=== PATIENT | male | born 1960 | race Caucasian/White ===

== ENCOUNTER 2021-10-26 00:41 | Inpatient (IN) | payer OTHER ==
[2021-10-26 01:55] LABS: VENOUS BASE EXCESS -3.4 mmol/L (-2-2); VENOUS O2 SATURATION 72.9 % (70-80); VENOUS PH 7.342 (7.310-7.410)
[2021-10-26 01:56] LABS: BASO % 0.7 % (0-2.0); EOS % 1.1 % (0-4.5); HEMATOCRIT 47.4 % (35.4-49); LYMPH % 28.8 % (8-40); MCH 32.1 pg (25.7-33.7); MCHC 33.8 g/dl (32.0-35.9); MEAN CELL VOLUME 94.9 fl (80-96); MEAN PLT VOLUME 8.1 fl (7.5-11.1); MONO % 7.6 % (3.8-10.2); NEUT % 61.8 % (42.8-82.8); PLATELET COUNT 275 10^3/uL (134-434); RDW 13.3 % (11.9-15.9); WHITE BLOOD COUNT 5.8 K/mm3 (4.0-10.0)
[2021-10-26 02:12] LABS: INR 0.95 (0.83-1.09); PROTHROMBIN TIME (PATIENT) 10.9 SEC (9.7-13.0)
[2021-10-26 02:15] LABS: ACTIVATED PTT 33.8 SECONDS (25.2-36.5)
[2021-10-26 02:17] LABS: ALBUMIN 3.6 g/dl (3.4-5.0); BLOOD UREA NITROGEN 18.9 mg/dL (7-18); CALCIUM 9.2 mg/dL (8.5-10.1)
[2021-10-26 02:20] LABS: CREATININE 1.1 mg/dL (0.55-1.3)
[2021-10-26 02:22] LABS: BILIRUBIN,TOTAL 0.8 mg/dL (0.2-1); TOT PROT 7.3 g/dl (6.4-8.2)
[2021-10-26 05:02] LABS: EPI CELLS 5 /uL (0-25.1); HYALINE CASTS 4 /uL (0-3.1); PH,URINE 5.5 (5.0-8.0); URINE APPEARANCE CLEAR; URINE BILIRUBIN NEGATIVE (NEGATIVE); URINE COLOR YELLOW; URINE GLUCOSE (UA) NEGATIVE (NEGATIVE); URINE KETONE TRACE (NEGATIVE); URINE LEUK ESTERASE 2+ (NEGATIVE); URINE NITRITE POSITIVE (NEGATIVE); URINE PROTEIN NEGATIVE (NEGATIVE); URINE WBC 287 /uL (0-25.8)
[2021-10-26] MEDS ORDERED: CEFTRIAXONE 1,000 MG in DEXTROSE 5%-WATER - 50 ML IVPB ONE (05:45)
[2021-10-26] MEDS ORDERED: CEFTRIAXONE 1 GM/50 ML BAG ONE ×2 (05:49→09:14)
[2021-10-26] MEDS ORDERED: SODIUM CHLORIDE 1,000 ML IV SCH (08:00)
[2021-10-26 09:12] LABS: URINE RBC 24 /uL (0-23.9)
[2021-10-26] MEDS ORDERED: ENOXAPARIN NA (PORCINE) 40 MG/0.4 ML DISP.SYRIN SQ ONE (09:14)
[2021-10-26] MEDS: ENOXAPARIN NA (PORCINE) 40 MG/0.4 ML DISP.SYRIN SQ SCH (09:22)
[2021-10-26] MEDS: CEFTRIAXONE 1 GM in DEXTROSE 5%-WATER - 50 ML IVPB SCH (09:22)
[2021-10-27 02:53] VITALS: BMI 16.2
[2021-10-27 07:24] LABS: EOS % 1.1 % (0-4.5); HEMATOCRIT 38.8 % (35.4-49); HEMOGLOBIN 13.1 GM/dL (11.7-16.9); LYMPH % 28.3 % (8-40); MCH 32.4 pg (25.7-33.7); MCHC 33.9 g/dl (32.0-35.9); MEAN CELL VOLUME 95.7 fl (80-96); MEAN PLT VOLUME 8.5 fl (7.5-11.1); MONO % 9.6 % (3.8-10.2); PLATELET COUNT 223 10^3/uL (134-434); RBC 4.06 M/mm3 (4.00-5.60); RDW 13.4 % (11.9-15.9); WHITE BLOOD COUNT 4.9 K/mm3 (4.0-10.0)
[2021-10-27 07:36] LABS: INR 0.97 (0.83-1.09); PROTHROMBIN TIME (PATIENT) 11.1 SEC (9.7-13.0)
[2021-10-27 07:38] LABS: ACTIVATED PTT 29.4 SECONDS (25.2-36.5)
[2021-10-27 07:54] LABS: MAGNESIUM 2.1 mg/dL (1.8-2.4)
[2021-10-27 07:57] LABS: CHOLESTEROL 145 mg/dL (50-200); PHOSPHOROUS 3.8 mg/dL (2.5-4.9)
[2021-10-27 07:58] LABS: TRIGLYCERIDES 100 mg/dL (0-150)
[2021-10-27 08:01] LABS: HDL CHOLESTEROL 49 mg/dL (40-60)
[2021-10-27 08:04] LABS: LDL CHOLESTEROL (ONLY SJRH) 79 mg/dL (5-100)
[2021-10-27] MEDS ORDERED: DEXTROSE 5%-WATER - 50 ML IVPB ONE (09:47)
[2021-10-27] MEDS ORDERED: cefTRIAXone SODIUM 1 GM VIAL ONE (09:47)
[2021-10-27 10:43] LABS: CHLORIDE 108 mmol/L (98-107); SODIUM 140 mmol/L (136-145)
[2021-10-27 10:45] LABS: CALCIUM 8.2 mg/dL (8.5-10.1)
[2021-10-27 10:46] LABS: ANION GAP 5 MMOL/L (8-16); CO2 26 mmol/L (21-32); GLUCOSE,RANDOM 90 mg/dL (74-106)
[2021-10-27 10:47] LABS: BLOOD UREA NITROGEN 14.9 mg/dL (7-18)
[2021-10-27 10:49] LABS: SGOT/AST 12 U/L (15-37); SGPT/ALT 14 U/L (13-61)
[2021-10-27 10:50] LABS: BILIRUBIN,TOTAL 0.5 mg/dL (0.2-1)
[2021-10-27 10:51] LABS: TOT PROT 6.2 g/dl (6.4-8.2)
[2021-10-27 10:52] LABS: ALK PHOS 81 U/L (45-117)
[2021-10-27] MEDS: ENOXAPARIN NA (PORCINE) 40 MG/0.4 ML DISP.SYRIN SQ SCH (10:59)
[2021-10-27] MEDS: CEFTRIAXONE 1 GM in DEXTROSE 5%-WATER - 50 ML IVPB SCH (10:59)
[2021-10-27 11:07] LABS: ERYTHROCYTE SEDIMENTATION RATE 8 mm/hr (0-20)
[2021-10-27 12:43] LABS: HEMATOCRIT 39.3 % (35.4-49); HEMOGLOBIN 13.5 GM/dL (11.7-16.9); MCH 32.9 pg (25.7-33.7); MCHC 34.4 g/dl (32.0-35.9); MEAN CELL VOLUME 95.5 fl (80-96); MEAN PLT VOLUME 8.3 fl (7.5-11.1); PLATELET COUNT 224 10^3/uL (134-434); RBC 4.12 M/mm3 (4.00-5.60); RDW 13.6 % (11.9-15.9); WHITE BLOOD COUNT 4.9 K/mm3 (4.0-10.0)
[2021-10-27 13:10] LABS: CALCIUM 8.7 mg/dL (8.5-10.1)
[2021-10-27 13:11] LABS: ALBUMIN 3.3 g/dl (3.4-5.0); BLOOD UREA NITROGEN 13.6 mg/dL (7-18)
[2021-10-27 13:14] LABS: CREATININE 0.8 mg/dL (0.55-1.3); PHOSPHOROUS 3.9 mg/dL (2.5-4.9)
[2021-10-27 13:16] LABS: BILIRUBIN,TOTAL 0.6 mg/dL (0.2-1); TOT PROT 6.8 g/dl (6.4-8.2)
[2021-10-27] MEDS ORDERED: ADENOSINE 6 MG/2 ML VIAL IVPUSH ONE (17:55)
[2021-10-27] MEDS ORDERED: dilTIAZem HCL 30 MG TABLET PO SCH (18:00)
[2021-10-27] MEDS ORDERED: NICOTINE 21 MG/24 HOURS TOPICAL PATCH TD SCH (18:15)
[2021-10-27] MEDS ORDERED: SODIUM CHLORIDE 1,000 ML IV SCH (18:15)
[2021-10-27] MEDS: NICOTINE 14 MG/24 HOURS TOPICAL PATCH TD SCH (18:24)
[2021-10-28 07:29] LABS: HEMATOCRIT 40.4 % (35.4-49); HEMOGLOBIN 13.2 GM/dL (11.7-16.9); MCH 31.7 pg (25.7-33.7); MCHC 32.7 g/dl (32.0-35.9); MEAN CELL VOLUME 97.1 fl (80-96); MEAN PLT VOLUME 8.6 fl (7.5-11.1); PLATELET COUNT 220 10^3/uL (134-434); RBC 4.16 M/mm3 (4.00-5.60); RDW 13.6 % (11.9-15.9); WHITE BLOOD COUNT 5.2 K/mm3 (4.0-10.0)
[2021-10-28 07:42] LABS: CALCIUM 8.4 mg/dL (8.5-10.1)
[2021-10-28 07:44] LABS: ALBUMIN 3.2 g/dl (3.4-5.0); BLOOD UREA NITROGEN 17.9 mg/dL (7-18); MAGNESIUM 2.1 mg/dL (1.8-2.4)
[2021-10-28 07:47] LABS: CREATININE 0.9 mg/dL (0.55-1.3); PHOSPHOROUS 3.7 mg/dL (2.5-4.9)
[2021-10-28 07:49] LABS: BILIRUBIN,TOTAL 0.3 mg/dL (0.2-1)
[2021-10-28 07:50] LABS: TOT PROT 6.5 g/dl (6.4-8.2)
[2021-10-28] MEDS: DRONEDARONE HCL 400 MG TAB (FP) PO SCH ×2 (08:19→17:35)
[2021-10-28] MEDS ORDERED: cefTRIAXone SODIUM 1 GM VIAL ONE (08:47)
[2021-10-28] MEDS ORDERED: DEXTROSE 5%-WATER - 50 ML IVPB ONE (08:47)
[2021-10-28] MEDS: ENOXAPARIN NA (PORCINE) 40 MG/0.4 ML DISP.SYRIN SQ SCH (10:05)
[2021-10-28] MEDS: NICOTINE 14 MG/24 HOURS TOPICAL PATCH TD SCH (10:06)
[2021-10-28] MEDS: CEFTRIAXONE 1 GM in DEXTROSE 5%-WATER - 50 ML IVPB SCH (10:06)
[2021-10-28] MEDS: MULTIVITAMINS (DAILY MVI) TABLET (FP) PO SCH (10:18)
[2021-10-28] MEDS: SULFAMETHOXAZOLE/TRIMETHOPRIM 800MG/160MG D.S. TABLET PO SCH ×2 (13:36→22:46)
[2021-10-29 08:28] LABS: HEMATOCRIT 37.4 % (35.4-49); HEMOGLOBIN 12.6 GM/dL (11.7-16.9); MCH 32.3 pg (25.7-33.7); MCHC 33.7 g/dl (32.0-35.9); MEAN CELL VOLUME 95.8 fl (80-96); MEAN PLT VOLUME 8.3 fl (7.5-11.1); PLATELET COUNT 226 10^3/uL (134-434); RBC 3.91 M/mm3 (4.00-5.60); RDW 13.4 % (11.9-15.9); WHITE BLOOD COUNT 4.7 K/mm3 (4.0-10.0)
[2021-10-29 08:30] LABS: CALCIUM 8.4 mg/dL (8.5-10.1)
[2021-10-29 08:31] LABS: BLOOD UREA NITROGEN 15.1 mg/dL (7-18); MAGNESIUM 2.1 mg/dL (1.8-2.4)
[2021-10-29 08:34] LABS: PHOSPHOROUS 3.6 mg/dL (2.5-4.9)
[2021-10-29] MEDS: DRONEDARONE HCL 400 MG TAB (FP) PO SCH ×2 (08:46→17:44)
[2021-10-29] MEDS: ENOXAPARIN NA (PORCINE) 40 MG/0.4 ML DISP.SYRIN SQ SCH (09:11)
[2021-10-29] MEDS: SULFAMETHOXAZOLE/TRIMETHOPRIM 800MG/160MG D.S. TABLET PO SCH ×2 (09:12→22:36)
[2021-10-29] MEDS: NICOTINE 14 MG/24 HOURS TOPICAL PATCH TD SCH (09:12)
[2021-10-29] MEDS: MULTIVITAMINS (DAILY MVI) TABLET (FP) PO SCH (09:12)
[2021-10-30] MEDS: DRONEDARONE HCL 400 MG TAB (FP) PO SCH ×2 (07:58→17:33)
[2021-10-30 08:05] LABS: HEMATOCRIT 37.6 % (35.4-49); HEMOGLOBIN 12.7 GM/dL (11.7-16.9); MCH 32.1 pg (25.7-33.7); MCHC 33.9 g/dl (32.0-35.9); MEAN PLT VOLUME 8.2 fl (7.5-11.1); PLATELET COUNT 236 10^3/uL (134-434); RBC 3.96 M/mm3 (4.00-5.60); RDW 13.7 % (11.9-15.9); WHITE BLOOD COUNT 4.4 K/mm3 (4.0-10.0)
[2021-10-30 08:22] LABS: CALCIUM 8.5 mg/dL (8.5-10.1)
[2021-10-30 08:23] LABS: BLOOD UREA NITROGEN 19.4 mg/dL (7-18)
[2021-10-30 08:25] LABS: CREATININE 1.1 mg/dL (0.55-1.3)
[2021-10-30] MEDS: SULFAMETHOXAZOLE/TRIMETHOPRIM 800MG/160MG D.S. TABLET PO SCH ×2 (09:04→21:01)
[2021-10-30] MEDS: NICOTINE 14 MG/24 HOURS TOPICAL PATCH TD SCH (09:04)
[2021-10-30] MEDS: MULTIVITAMINS (DAILY MVI) TABLET (FP) PO SCH (09:04)
[2021-10-30] MEDS: ENOXAPARIN NA (PORCINE) 40 MG/0.4 ML DISP.SYRIN SQ SCH (09:05)
[2021-10-31 06:59] LABS: HEMATOCRIT 38.1 % (35.4-49); MCH 32.5 pg (25.7-33.7); MCHC 34.2 g/dl (32.0-35.9); MEAN CELL VOLUME 94.8 fl (80-96); MEAN PLT VOLUME 8.3 fl (7.5-11.1); PLATELET COUNT 239 10^3/uL (134-434); RBC 4.02 M/mm3 (4.00-5.60); RDW 13.3 % (11.9-15.9); WHITE BLOOD COUNT 4.9 K/mm3 (4.0-10.0)
[2021-10-31 07:29] LABS: BLOOD UREA NITROGEN 25.2 mg/dL (7-18); CALCIUM 8.4 mg/dL (8.5-10.1)
[2021-10-31 07:32] LABS: CREATININE 1.2 mg/dL (0.55-1.3)
[2021-10-31] MEDS: DRONEDARONE HCL 400 MG TAB (FP) PO SCH ×2 (08:37→17:09)
[2021-10-31] MEDS: SULFAMETHOXAZOLE/TRIMETHOPRIM 800MG/160MG D.S. TABLET PO SCH ×2 (09:27→21:36)
[2021-10-31] MEDS: MULTIVITAMINS (DAILY MVI) TABLET (FP) PO SCH (09:27)
[2021-10-31] MEDS: ENOXAPARIN NA (PORCINE) 40 MG/0.4 ML DISP.SYRIN SQ SCH (09:27)
[2021-10-31] MEDS: NICOTINE 14 MG/24 HOURS TOPICAL PATCH TD SCH (09:27)
[2021-11-01 07:05] LABS: HEMATOCRIT 37.6 % (35.4-49); HEMOGLOBIN 13.1 GM/dL (11.7-16.9); MCH 33.1 pg (25.7-33.7); MCHC 34.9 g/dl (32.0-35.9); MEAN CELL VOLUME 94.9 fl (80-96); PLATELET COUNT 239 10^3/uL (134-434); RBC 3.96 M/mm3 (4.00-5.60); RDW 13.5 % (11.9-15.9); WHITE BLOOD COUNT 5.3 K/mm3 (4.0-10.0)
[2021-11-01 07:30] LABS: CALCIUM 8.9 mg/dL (8.5-10.1)
[2021-11-01 07:31] LABS: BLOOD UREA NITROGEN 28.8 mg/dL (7-18)
[2021-11-01 07:34] LABS: CREATININE 1.1 mg/dL (0.55-1.3)
[2021-11-01] MEDS: DRONEDARONE HCL 400 MG TAB (FP) PO SCH ×2 (08:55→17:03)
[2021-11-01] MEDS: MULTIVITAMINS (DAILY MVI) TABLET (FP) PO SCH (09:47)
[2021-11-01] MEDS: SULFAMETHOXAZOLE/TRIMETHOPRIM 800MG/160MG D.S. TABLET PO SCH ×2 (09:47→21:13)
[2021-11-01] MEDS: ENOXAPARIN NA (PORCINE) 40 MG/0.4 ML DISP.SYRIN SQ SCH (09:47)
[2021-11-01] MEDS: NICOTINE 14 MG/24 HOURS TOPICAL PATCH TD SCH (09:47)
[2021-11-02 08:17] LABS: HEMATOCRIT 39.2 % (35.4-49); HEMOGLOBIN 13.1 GM/dL (11.7-16.9); MCH 31.7 pg (25.7-33.7); MCHC 33.4 g/dl (32.0-35.9); MEAN CELL VOLUME 94.9 fl (80-96); MEAN PLT VOLUME 8.3 fl (7.5-11.1); PLATELET COUNT 274 10^3/uL (134-434); RBC 4.13 M/mm3 (4.00-5.60); RDW 13.7 % (11.9-15.9); WHITE BLOOD COUNT 5.2 K/mm3 (4.0-10.0)
[2021-11-02 08:38] LABS: BLOOD UREA NITROGEN 24.5 mg/dL (7-18); CALCIUM 8.8 mg/dL (8.5-10.1)
[2021-11-02 08:42] LABS: CREATININE 1.3 mg/dL (0.55-1.3)
[2021-11-02] MEDS: SULFAMETHOXAZOLE/TRIMETHOPRIM 800MG/160MG D.S. TABLET PO SCH ×2 (09:51→21:21)
[2021-11-02] MEDS: NICOTINE 14 MG/24 HOURS TOPICAL PATCH TD SCH (09:51)
[2021-11-02] MEDS: ENOXAPARIN NA (PORCINE) 40 MG/0.4 ML DISP.SYRIN SQ SCH (09:51)
[2021-11-02] MEDS: MULTIVITAMINS (DAILY MVI) TABLET (FP) PO SCH (09:52)
[2021-11-03 01:50] VITALS: BP 116/54; PULSE 60; TEMP 99.5
== END 2021-11-03 03:00 | disposition short-term general hospital (02) | DRG 309 ==
LOC: JER 00:41 → JERBED 05:52 → UNDOADMOB 05:52 → INTOOBSV 05:52 → JERBED 12:40 → J4W 10-27 01:56 → OBSVTOIN 10-27 19:09 → J4W 10-30 19:59
PROVIDERS: ADMIT Internal Medicine; ATTEND Internal Medicine
DX: I47.1 Supraventricular tachycardia (principal); N39.0 Urinary tract infection, site not specified; R64 Cachexia; G81.91 Hemiplegia, unspecified affecting right dominant side; Z68.1 Body mass index [BMI] 19.9 or less, adult; G35 Multiple sclerosis; E03.9 Hypothyroidism, unspecified; F32.A Depression, unspecified; R62.7 Adult failure to thrive
CPT/HCPCS: 0241U-QW; 36415; 70553-TC; 71045-TC-FY; 72156-TC; 80048; 80053; 80061; 81003; 82272; 82550; 82728; 82803; 83036; 83540; 83550; 83605; 83735; 83880; 84100; 84153; 84439; 84443; 84481; 84484; 85025; 85027; 85610; 85651; 85730; 86140; 86850; 86900; 86901; 87040; 87086; 87186; 93005; 93010; 93306-TC; 97116-GP; 97162-GP; 99285-25; A9579; C9803-CS; G0378; U0003; U0005

== ENCOUNTER 2021-12-18 00:37 | Observation (INO) | payer OTHER ==
[2021-12-18 01:14] VITALS: BMI 20.9
[2021-12-18 03:09] LABS: EOS % 2.1 % (0-4.5); HEMATOCRIT 42.3 % (35.4-49); HEMOGLOBIN 14.1 GM/dL (11.7-16.9); LYMPH % 23.1 % (8-40); MCH 31.8 pg (25.7-33.7); MCHC 33.3 g/dl (32.0-35.9); MEAN CELL VOLUME 95.6 fl (80-96); MEAN PLT VOLUME 7.8 fl (7.5-11.1); MONO % 9.2 % (3.8-10.2); NEUT % 64.6 % (42.8-82.8); PLATELET COUNT 296 10^3/uL (134-434); RBC 4.43 M/mm3 (4.00-5.60); RDW 14.1 % (11.9-15.9); WHITE BLOOD COUNT 6.8 K/mm3 (4.0-10.0)
[2021-12-18 03:16] LABS: INR 1.03 (0.83-1.09); PROTHROMBIN TIME (PATIENT) 11.8 SEC (9.7-13.0)
[2021-12-18 03:18] LABS: ACTIVATED PTT 30.9 SECONDS (25.2-36.5)
[2021-12-18 03:25] LABS: ALBUMIN 3.3 g/dl (3.4-5.0); BLOOD UREA NITROGEN 16.7 mg/dL (7-18); CALCIUM 9.1 mg/dL (8.5-10.1); MAGNESIUM 2.1 mg/dL (1.8-2.4)
[2021-12-18 03:28] LABS: CREATININE 1.1 mg/dL (0.55-1.3); PHOSPHOROUS 3.7 mg/dL (2.5-4.9)
[2021-12-18 03:30] LABS: BILIRUBIN,TOTAL 0.5 mg/dL (0.2-1); TOT PROT 7.1 g/dl (6.4-8.2)
[2021-12-19] MEDS: SODIUM CHLORIDE 0.45% 1,000 ML IV SCH (01:00)
[2021-12-19 07:50] LABS: BASO % 0.6 % (0-2.0); EOS % 2.5 % (0-4.5); HEMATOCRIT 38.8 % (35.4-49); LYMPH % 27.8 % (8-40); MCH 31.8 pg (25.7-33.7); MCHC 33.4 g/dl (32.0-35.9); MEAN CELL VOLUME 95.2 fl (80-96); MONO % 10.3 % (3.8-10.2); NEUT % 58.8 % (42.8-82.8); PLATELET COUNT 264 10^3/uL (134-434); RBC 4.08 M/mm3 (4.00-5.60); RDW 14.2 % (11.9-15.9); WHITE BLOOD COUNT 6.7 K/mm3 (4.0-10.0)
[2021-12-19 07:52] LABS: CALCIUM 8.7 mg/dL (8.5-10.1)
[2021-12-19 07:53] LABS: ALBUMIN 2.9 g/dl (3.4-5.0); BLOOD UREA NITROGEN 19.8 mg/dL (7-18)
[2021-12-19 07:56] LABS: PHOSPHOROUS 4.1 mg/dL (2.5-4.9)
[2021-12-19 07:57] LABS: BILIRUBIN,TOTAL 0.6 mg/dL (0.2-1); TOT PROT 6.4 g/dl (6.4-8.2)
[2021-12-19] MEDS: ENOXAPARIN NA (PORCINE) 40 MG/0.4 ML DISP.SYRIN SQ SCH (09:45)
[2021-12-20] MEDS: ENOXAPARIN NA (PORCINE) 40 MG/0.4 ML DISP.SYRIN SQ SCH (09:54)
[2021-12-20] MEDS: SODIUM CHLORIDE 0.45% 1,000 ML IV SCH ×3 (09:55→21:33)
[2021-12-21 05:00] LABS: URINE APPEARANCE CLEAR; URINE BILIRUBIN NEGATIVE (NEGATIVE); URINE COLOR YELLOW; URINE GLUCOSE (UA) NEGATIVE (NEGATIVE); URINE KETONE NEGATIVE (NEGATIVE); URINE LEUK ESTERASE NEGATIVE (NEGATIVE); URINE NITRITE NEGATIVE (NEGATIVE); URINE PROTEIN NEGATIVE (NEGATIVE); URINE UROBILINOGEN 0.2 mg/dL (0.2-1.0)
[2021-12-21 07:26] LABS: HEMATOCRIT 34.3 % (35.4-49); HEMOGLOBIN 11.5 GM/dL (11.7-16.9); MCH 31.9 pg (25.7-33.7); MCHC 33.7 g/dl (32.0-35.9); MEAN CELL VOLUME 94.9 fl (80-96); MEAN PLT VOLUME 8.4 fl (7.5-11.1); PLATELET COUNT 260 10^3/uL (134-434); RBC 3.61 M/mm3 (4.00-5.60); RDW 14.1 % (11.9-15.9); WHITE BLOOD COUNT 6.2 K/mm3 (4.0-10.0)
[2021-12-21 07:40] LABS: CALCIUM 8.2 mg/dL (8.5-10.1)
[2021-12-21 07:41] LABS: BLOOD UREA NITROGEN 12.4 mg/dL (7-18)
[2021-12-21 07:44] LABS: CREATININE 0.9 mg/dL (0.55-1.3)
[2021-12-21 08:29] VITALS: RESP 18
[2021-12-21] MEDS: ENOXAPARIN NA (PORCINE) 40 MG/0.4 ML DISP.SYRIN SQ SCH (09:42)
[2021-12-21] MEDS ORDERED: metoPROLOL SUCCINATE 25 MG TAB.SR.24H (FP) PO SCH (10:00)
[2021-12-21 15:22] VITALS: BP 102/56; PULSE 59; TEMP 97.8
== END 2021-12-21 16:52 | disposition home or self-care (01) ==
LOC: JER 00:37 → UNDOADMOB 06:06 → JERBED 06:06 → OBSVTOIN 19:44 → INTOOBSV 19:44 → J4W 12-19 00:26 → JERBED 12-19 00:26 → J4W 12-20 15:52
PROVIDERS: ADMIT Internal Medicine; ATTEND Internal Medicine
PROC: 3E023GC Introduction of Other Therapeutic Substance into Muscle, Percutaneous Approach (ICD-10-PCS; principal; 2021-12-20)
PROC: 3E0337Z Introduction of Electrolytic and Water Balance Substance into Peripheral Vein, Percutaneous Approach (ICD-10-PCS; 2021-12-20)
DX: I47.1 Supraventricular tachycardia (principal); I49.3 Ventricular premature depolarization; I42.9 Cardiomyopathy, unspecified; G35 Multiple sclerosis; R53.1 Weakness; M79.10 Myalgia, unspecified site; Z29.8 Encounter for other specified prophylactic measures; F17.210 Nicotine dependence, cigarettes, uncomplicated
CPT/HCPCS: 0241U-QW; 36415; 71045-TC-FY; 80048; 80053; 81003; 82550; 83735; 84100; 84439; 84443; 84484; 85025; 85027; 85610; 85730; 87086; 87186; 93005; 93010; 96360; 96372; 97116-GP; 97162-GP; 99285-25; G0378